=== PATIENT | female | born 1970 | race Caucasian/White ===

== ENCOUNTER 2025-03-05 15:29 | Outpatient (AMB) | payer OTHER, SELFPAY ==
--- NOTE | 2025-03-05 15:31 | A.OFFVIS_ITS ---
Intake Visit Reasons: tremors HPI Comments Details: The patient is a 54 year old individual presenting for evaluation of hand tremors and headaches. The patient reports experiencing tremors for approximately 10 years, which have occurred off and on but seem to be worsening more recently. The patient feels the tremor may have worsened after starting Symbicort two years ago and notes it can be present in the mornings or at other times during the day. The tremor is not disabling and has not caused social problems, although the patient sometimes has to wait for the shaking to subside before picking things up. The patient was also referred to discuss headaches, which have become more frequent. Last month, one episode lasted for five days, and the patient has a family history of migraines, affecting the mother, father, sister, and nephew. For relief, the patient uses ibuprofen and Tylenol. Past medical history is significant for depression and anxiety since the age of 19, for which the patient has been treated on and off over the years and is currently taking bupropion 150 mg and escitalopram 20 mg. The patient has a history of COPD (chronic bronchitis) and uses Ellipta, Symbicort, and Ventolin as needed. The patient also takes Lo Loestrin Fe for control and valacyc lovir as needed. The patient denies a history of heavy alcohol use or chemotherapy exposure. Review of Systems Narrative Constitutional:? Complain of fatigue and malaise HEENT:? Complain of sore throat Cardiovascular:?No chest pain, palpitations, orthopnea, PND, or leg swelling. Respiratory:? Complain of cough and shortness of breath Gastrointestinal:?No nausea, vomiting, abdominal pain, diarrhea, or constipation. Genitourinary:? Complain of urinary incontinence Musculoskeletal:? Complain of back pain and neck pain Neurological:? Complain of tremor, memory problems, headaches, dizziness, Psychiatric:?No anxiety, depression, mood swings, sleep disturbance, or hallucinations. Endocrine:? Complain of cold intolerance Hematologic/Lymphatic:?No easy bruising, bleeding, or lymphadenopathy. Integumentary (Skin):?No rash, lesions, itching, or color changes. Allergic/Immunologic:?No seasonal allergies, hives, or recurrent infections. Physical Exam Neuro Other: Mental Status: Alert and oriented to person, place, and time. Normal attention. Normal spontaneous speech, fluency, and comprehension. No obvious issues with mood and memory. Affect is appropriate. Cranial Nerves: CN II: Visual sheppard full to confrontation, visual acuity intact. CN III, IV, : Pupils equal, round, reactive to light and accommodation. Extraocular movements are normal. CN V: Facial sensation is normal. CN VII: Facial movements symmetrical. CN VIII: Hearing intact to bedside conversation is normal. CN IX, X: Palate elevates symmetrically. CN XI: Shoulder shrug and head turn symmetrical. CN XII: Tongue midline without atrophy or fasciculations. Motor: Bulk and tone normal in all extremities. No significant muscle weakness in arms and legs. No drift. Reflexes: Deep tendon reflexes 2+ and symmetric. Plantar response down-going bilaterally. Coordination: Gtwaho-qt-ttzf and rlql-zq-dsoh testing normal. No dysmetria. Gait and Station: No obvious gait abnormality. No ataxia or instability. Sensory: Intact to light touch, pinprick, and vibration. Romberg is negative. Extrapyramidal: Full facial expressions and blinking. No rigidity. Movements are appropriate with no tremor or abnormality. Speech: Normal; no dysarthria or tremor. Assessment & Plan Assessment & Plan (1) Migraine without aura: Code(s): G43.009 - Migraine without aura, not intractable, without status migrainosus Category: Medical Qualifiers: Status migrainosus presence: without status migrainosus Intractability: not intractable Qualified Code(s): G43.009 - Migraine without aura, not intractable, without status migrainosus (2) Physiological tremor: Code(s): R25.1 - Tremor, unspecified Category: Medical Plan Impression: a: Physiological tremor probably exaggerated by antidepressant b: Migraine w/o aura Rec: a: Education about tremor, which did not require any medicine b: Sumatriptan 50mg one a day as needed I discussed with the patient that the hand tremor is an exaggerated physiological tremor and not a sign of a serious neurological disease. I explained that this type of tremor can be made worse by certain medications, such as the antidepressants and COPD inhalers the patient is taking. I reassured the patient that no medication is needed for the tremor as it is not disabling. I explained that the patient's headaches are likely migraines, given the symptoms and family history. I have prescribed sumatriptan for as-needed use and advised taking it with caffeine to enhance efficacy and reduce side effects. I recommended a follow-up appointment with my nurse practitioner, Yamilet, for ongoing management of the headaches, clarifying that no follow-up is needed for the tremor. Medications: New sumatriptan succinate 50 mg orally qd prn for headache PRN; do not exceed 4 doses per 24 hrs 10 tabs 5RF migraine headache Coding Level of Care Code New Pt Level 4 (11646) Diagnoses Migraine without aura and without status migrainosus, not intractable G43.009 Status migrainosus presence: without status migrainosus Intractability: not intractable Physiological tremor R25.1
--- OUTSIDE RECORDS SUMMARY | 2025-03-05 19:03 | XMS_ITS | Encounter Summary ---
Author Organization [facility] Address [address] [place] [address] Care Team Providers Care Director Of Cardiology Name Role Phone Victor Manuel Stover MD Primary Care Provider [phone] Encounter Details Date Type Department Care Team ([facility] st Contact Info) Description 01/27/2025 Results Follow-Up Pulmonology - [place] [address] [facility] [place] [address] Seble Garcia MD [address] [place] [phone] Social History Tobacco Use Types Packs/Day Years Used Date Smoking Tobacco: Former Cigarettes 0.5 Q uit: 04/11/1994 Smokeless Tobacco: Never Alcohol Use Standard Drinks/Week Comments Yes 0 (1 standard drink = 0.6 oz pur e alcohol) Housing Instability Answer Date Recorde d Are you worried that in the next 2 months you may not have stable housing? No 12/14/2024 Food Access & Nutrition Answer Date Rec orded Do you have access to a vari ety of food including fruits and vegetables? Yes 12/14/2024 Access to Healthcare Answer Date Record ed Within the last 3 months, bhargavi moseley many times did you visit the emergency department for your medical care? 0 12/14/2024 Health Literacy Answer Date Recorded How often do you need to hav e someone help you when you read instructions, pamphlets, or other written material from your doctor or pharmacy? Never 12/14/2024 Caregiver: How often do you need to have someone help you when you read instructions, pamphlets, or other written material from your doctor or pharmacy? Not on file 12/14/2024 Financial Risk Answer Date Recorded How hard is it for you to pa y for the very basics like food, housing, medical care, and air conditioning / heating? Not very hard 12/14/2024 Transportation Answer Date Recorded Has the lack of transportati on kept you from meetings, work, or from getting things needed for daily living? No Has the lack of transportati on kept you from medical appointments or from getting medications? No 12/14/2024 Social Isolation Answer Date Recorded How often do you feel lonely or isolated from th ose around you? Never 12/14/2024 Food Risk Answer Date Recorded Within the past 12 months we worried whether our food would run out before we got money to buy more. Never true 12/14/2024 Within the past 12 months th e food we bought just didn't last and we didn't have money to get more. Never true 12/14/2024 Dependent Care Answer Date Recorded Do you need help finding or paying for care for your loved ones. For example, child care assistant or elderly care for an older adult? No 12/14/2024 Education Answer Date Recorded Do you think completing more education or training, like finishing a GED, going to college, or learning a trade, would be helpful for you? No 12/14/2024 Employment and Income Answer Date Recor ded During the last four weeks, have you been actively looking for work? No 12/14/2024 Living Situation Answer Date Recorded What is your living situation? Unrecognized valu e 12/14/2024 Comments No Sex and Gender Information Value Date Recorded Sex Assigned at Not on file Legal Sex Female 8:33 PM EST Gender Identity Not on file Sexual Orientation Not on file documented as of this encounter Progress Notes * Seble Garcia MD - 01/27/2025 9:58 PM EDT Inform patient chest x-ray showed no new findings. documented in this encounter Plan of Treatment Upcoming Encounters Date Type Department Care Team (Late st Contact Info) Description 07/31/2025 10:00 AM EDT Office Visit Pulmonology - [place] [address] [facility] [place] [address] Seble Garcia MD [address] [place] [phone] documented as of this encounter Visit Diagnoses Not on filedocumented in this encounter Additional Health Concerns Assessment Noted Time PHQ-9 Depression Total Score: 1 12/15/19 25 7:36 AM EDT documented as of this encounter Care Teams Director Of Cardiology Relationship Specialty Start Date End Date Victor Manuel Stover MD PCP - General Internal Medicine 05/28/19 documented as of this encounter
--- OUTSIDE RECORDS SUMMARY | 2025-03-05 19:03 | XMS_ITS ---
Author Name [facility] Organization Unknown History of Medication Use Medication Directions Dispensed Refills Start Date End Date Stat budesonide-formoteroL (SYMBICORT) 160-4.5 mcg/actuation inhaler Inhale 2 puffs by mouth 2 (two) times a day. Rinse mouth with water after use to reduce aftertaste and incidence of candidiasis. Do not swallow. 08/16/2024 active valACYclovir (VALTREX) 1 gram tablet TAKE 2 TABLETS BY MOUTH TWICE A DAY DIRECTED FOR 1 DAY FOR OUTBREAK 08/14/2024 active albuterol HFA (PROAIR HFA ; PROVENTIL HFA ; VENTOLIN HFA) 90 mcg/actuation inhaler Inhale 2 puffs by mouth every 6 (six) hours if needed for wheezing or shortness of breath. 07/18/2024 active fluticasone furoate (Arnuity Ellipta) 100 mcg/actuation blister with device inhaler Inhale 1 puff by mouth 1 (one) time each day. 07/18/2024 active norethindrone-e.estrad ioL-iron (Lo Loestrin Fe) 1 mg-10 mcg (24)/10 mcg (2) per tablet Take by mouth. 09/02/2020 active escitalopram (LEXAPRO) 20 mg tablet Take 1 tablet (20 mg total) by mouth 1 (one) time each day. 06/16/2020 active buPROPion XL (WELLBUTRIN XL) 150 mg 24 hr tablet Take 1 tablet (150 mg total) by mouth 1 (one) time each day. active calcium carbonate-vitamin D3 500 mg-3.125 mcg (125 unit) tablet per tabelt 2 tablets twice a day by oral route. active cholecalciferol, vitamin D3, 25 mcg (1,000 unit) tablet,chewable 2 units twice a day by oral route. active Lactobacillus acidophilus 10 billion cell capsule 1 million cells twice a day by oral route. active multivitamin tablet 2 tablets twice a day by oral route. 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 ProblemAct [facility] Sprain of sacroiliac ligament active 2007-06-07 ProblemAct [facility] Depression active 2012-01-13 ProblemAct [facility] Tubular adenoma active 2023-01-[address] [facility] Immunizations Vaccine Date Source Lot Number Status Influenza trivalent, 0.5mL, preservative free (Fluarix; FluLaval; Fluzone) ages 6mo and older (Afluria) 3 years and older [facility]20[id number] Influenza Quadravalent, MDCK , 0.5ml, preservative free (Flucelvax) 6mo and older 01/31/2023 [facility] [id number] completed Influenza trivalent, 0.5mL, preservative free (Fluarix; FluLaval; Fluzone) ages 6mo and older (Afluria) 3 years and older 01/21/2022 [facility] Moderna SARS-CoV-2 COVID-19, mRNA, LNP-S, preservative free 08/17/2021 [facility] [id number] completed Moderna SARS-CoV-2 COVID-19, mRNA, LNP-S, preservative free 05/19/2020 [facility] [id number] completed Moderna SARS-CoV-2 COVID-19, mRNA, LNP-S, preservative free 04/21/2020 [facility] [id number] completed Influenza trivalent, 0.5mL, preservative free (Fluarix; FluLaval; Fluzone) ages 6mo and older (Afluria) 3 years and older 01/29/2020 [id number] completed Td Tetanus diptheria (Tdvax) 7yo and older 06/07/2019 [id number] completed Influenza trivalent, 0.5mL, preservative free (Fluarix; FluLaval; Fluzone) ages 6mo and older (Afluria) 3 years and older 02/16/2018 [facility] [id number] completed Influenza trivalent, 0.5mL, preservative free (Fluarix; FluLaval; Fluzone) ages 6mo and older (Afluria) 3 years and older 01/26/2017 [facility] completed Hepatitis B (Sbmprkd-S-Hrgjy , Recombivax HB-Adult) 19yo and older 09/14/2010 [id number] complet ed Tdap Tetanus diptheria acell ular pertussis (Boostrix; Adacel) 7yo and older 07/23/2008 [id number] completed Care Team Organization Name Specialty Phone Email Start Date End Da te [facility] Victor Manuel Stover Primary Care 08/16/2022 11/28/2023 [facility] Kary Maguire MD Primary Care 02/16/2022 11/28/2023
--- OUTSIDE RECORDS SUMMARY | 2025-03-05 19:03 | XMS_ITS | Clinical Summary ---
Author Organization [address] Building Address [address] [place] [phone] Phone Care Team Providers Care Planning Lead Name Role Phone Victor Manuel Stover MD Primary Care Provider [phone] Allergies Active Allergy Reactions Criticality Noted Date Comments Amoxicillin 09/12/2018 Medications norethindrone-e. estradioL-iron (Lo Loestrin Fe) 1 mg-10 mcg (24)/10 mcg (2) per tablet Take by mouth. 1 Active fluticasone furoate (Arnuity Ellipta) 100 mcg/actuation blister with device inhaler Inhale 1 puff by mouth 1 (one) time each day. 1 each 5 07/19/19 26 Active albuterol HFA (PROAIR HFA ; PROVENTIL HFA ; VENTOLIN HFA) 90 mcg/actuation inhalerIndicatio ns:Chronic bronchitis, unspecified chronic bronchitis type (CMS/HCC V24, CMS/HCC V28) Inhale 2 puffs by mouth every 6 (six) hours if needed for wheezing or shortness of breath. 1 each 5 07/19/19 26 Active valACYclovir (VALTREX) 1 gram tablet TAKE 2 TABLETS BY MOUTH TWICE A DAY DIRECTED FOR 1 DAY FOR OUTBREAK 12 tablet 1 5 Active budesonide-formo teroL (SYMBICORT) 160-4.5 mcg/actuation inhaler Inhale 2 puffs by mouth 2 (two) times a day. Rinse mouth with water after use to reduce aftertaste and incidence of candidiasis. Do not swallow. 3 each 3 5 08/17/19 Active calcium carbonate-vitami n D3 500 mg-3.125 mcg (125 unit) tablet per tabelt 2 tablets twice a day by oral route. Active digestive enzymes capsule Acti ve cholecalciferol, vitamin D3, 25 mcg (1,000 unit) tablet,chewable 2 units twice a day by oral route. Active multivitamin tablet 2 tablets twice a day by oral route. Active buPROPion XL (WELLBUTRIN XL) 150 mg 24 hr tablet Take 1 tablet (150 mg total) by mouth 1 (one) time each day. Active escitalopram (LEXAPRO) 20 mg tablet Take 1 tablet (20 mg total) by mouth 1 (one) time each day. 1 Active Lactobacillus acidophilus 10 billion cell capsule 1 million cells twice a day by oral route. 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 Tubular adenoma 01/31/2023 Overview (03/06/2024): 12/2022, repeat in 5 years Weakness of left hip 11/07/2017 Vertigo 03/10/2015 Depression 01/13/2012 Overview (03/06/2024): Doing well on Citalopram 20 mg qd Lumbosacral root lesions 06/29/2007 Sprain of sacroiliac ligament 06/07/2007 Encounters Date Type Department Care Team Description 02/01/2025 Telephone Infectious Disease - [place] [facility] [address] [place] [phone] Christina Interiano RN 01/31/2025 Results Follow-Up Internal Medicine - [facility] [address] [place] [phone] Jayme Contreras NP 01/30/2025 10:45 AM EDT Office Visit Pulmonology - [place] [facility] 200 [place] [address] Seble Garcia MD Chronic bronchitis, unspecified chronic bronchitis type (CMS/HCC V24, CMS/HCC V28) (Primary Dx); Lung nodules; Ex-smoker 01/30/2025 9:00 AM EDT Ancillary Procedure Pulmonology [address] [phone] Chronic bronchitis, unspecified chronic bronchitis type (CMS/HCC V24, CMS/HCC V28) 01/27/2025 Results Follow-Up Pulmonology - [address] [phone] Seble Garcia MD 01/25/2025 3:51 PM EDT - 01/25/2025 11:59 PM EDT Hospital Encounter Xray - [address] [phone] Chronic bronchitis, unspecified chronic bronchitis type ([facility]/HCC V24, [facility] V28) Discharge Disposition: Home or Self Care 01/17/2025 5:16 PM EDT - 01/17/2025 11:59 PM EDT Hospital Encounter Radiology Department - [address] [phone] Encounter for screening mammogram for breast cancer Discharge Disposition: Home or Self Care 01/01/2025 4:29 PM EDT - 01/01/2025 11:59 PM EDT Hospital Encounter Radiology Department - [address] [phone] Tremor Discharge Disposition: Home or Self Care 12/14/2024 8:45 AM EDT Office Visit Internal Medicine - [address] [phone] Jayme Contreras NP Tiredness (Primary Dx); Tremor from Last 3 Months Immunizations Immunization Administration Dates Next Due Hepatitis B (Txkqpdw-E-Aczps , Recombivax HB-Adult) 19yo and older 09/14/2010 Influenza Quadravalent, MDCK , 0.5ml, preservative free (Flucelvax) 6mo and older 01/31/2023 Influenza trivalent, 0.5mL, preservative free (Fluarix; FluLaval; Fluzone) ages 6mo and older (Afluria) 3 years and older 01/24/2024,01/21/2022,01/29/2020,2017,01/26/2017 Moderna SARS-CoV-2 COVID-19, mRNA, LNP-S, preservative free 08/17/2021,05/19/2020,04/21/2020 Td Tetanus diptheria (Tdvax) 7yo and older 06/07/2019 Tdap Tetanus diptheria acell ular pertussis (Boostrix; Adacel) 7yo and older 07/23/2008 Surgical History Surgery Date Site/Laterality Comments OTHER SURGICAL HISTORY PROCEDURE: HISTORY OTHER; COMMENT: cyst and part of the fallopian OTHER SURGICAL HISTORY PROCEDURE: HISTORY OTHER; COMMENT: repair nasal septum TONSILLECTOMY PROCEDURE: HISTORICAL TONSILLECTOMY Medical History Medical History Date Comments Anxiety state, unspecified DX:An xiety state, unspecified Peptic ulcer, unspecified si te, unspecified as acute or chronic, without mention of hemorrhage or perforation, with obstruction DX:Peptic ulcer, unspeci fied site, unspecified as acute or chronic, without mention of hemorrhage or perforation, with obstruction Tubular adenoma 01/31/2023 DX:Tubular adeno ma; COMMENT: 12/2022, repeat in 5 years Family History Medical History Relation Name Comments Colon polyps Father Other: Cardiac Amyloidosis Father Other: type 2 diabetes Father Depression Mother psoriasis Other: tia Mother Other: anuersym Paternal Grandfather aort ic,cig Other: anxiety Son Breast cancer Neg Hx Relation Name Status Comments Brother Alive Daughter Alive Father Alive Maternal Grandfather Maternal Grandmother Mother Alive Paternal Grandfather Paternal Grandmother Sister Alive Son Alive Social History Tobacco Use Types Packs/Day Years Used Date Smoking Tobacco: Former Cigarettes 0.5 Q uit: 04/11/1994 Smokeless Tobacco: Never Tobacco Cessation:Counseling Given: Not Answered Alcohol Use Standard Drinks/Week Comments Yes 0 [...] Record ed Within the last 3 months, ho w many times did you visit the emergency [...] care for your loved ones. For example, residential child care counselor or elderly care for an older adult? [...] on file Sexual Orientation Not on file Obstetrics History Para Term AB IAB SAB Ectopic Multiple Livin g Live Births 2 2 2 2 Date Outcome GA Total Labor Labor/2nd/3rd Weight Sex Type Anes PTL Blanche A1 A5 Name Clin Term Term Last Filed Vital Signs Vital Sign Reading Time Taken Comments Blood Pressure 103/52 01/30/2025 9:35 AM EDT Pulse 69 01/30/2025 9:35 AM EDT Temperature 36.7 C (98.1 F) 01/30/2025 9:35 AM EDT Respiratory Rate - - Oxygen Saturation 100% 01/30/2025 9:35 AM EDT Inhaled Oxygen Concentration - - Weight 61.7 kg (136 lb) 01/30/2025 9:35 AM EDT Height 165.1 cm (5' 5 ) 07/18/2024 8:12 AM EDT Body Mass Index 22.63 07/18/2024 8:12 AM EDT Plan of Treatment Upcoming Encounters Date Type Department Care Team (Late st Contact Info) Description 07/31/2025 10:00 AM EDT Office Visit Pulmonology - [address] [place] [phone] Seble Garcia MD [address] [place] [phone] Health Maintenance Due Date Last Done Comments Hepatitis B Vaccines (2 of 3 - 19+ 3-dose series) 10/12/2010 09/14/2010 Cervical Cancer Screening: Pap Smear 06/14/2015 06/13/2012 Zoster Vaccines (1 of 2) 08/27/2019 HIV Screening 03/20/2022 COVID-19 Vaccine ( season) 2024 08/17/2021, 02/10/2021, 05/19/2020, Additional history exists Social Influencers of Health Screening 12/14/2025 12/14/2024 Breast Cancer Screening 01/17/2027 01/18/20 25, 10/18/2023, 10/18/2023, Additional history exists Colorectal Cancer Screening: Colonoscopy 12/15/2027 12/14/2022 Cholesterol Screening (Lipid Panel) 07/14/2028 07/15/2023 DTaP,Tdap,and Td Vaccines (3 - Td or Tdap) 06/07/2029 06/07/2019, 07/23/2008 Hepatitis C Screening Completed 01/28/2009 Pneumococcal Vaccine: 50+ Years Completed 02/07/2024 Depression Screening Completed 12/14/2024, 02/10/20 24 RSV Immunization Adult Patients Completed 12/20/2024 Influenza Vaccine Completed 01/21/2025, , 01/31/2023, Additional history exists HIB Vaccines Aged Out No longer eligi ble based on patient's age to complete this topic HPV Vaccines Aged Out No longer eligi ble based on patient's age to complete this topic Hepatitis A Vaccines Aged Out No long er eligible based on patient's age to complete this topic IPV Vaccines Aged Out No longer eligi ble based on patient's age to complete this topic MMR Vaccines Aged Out No longer eligi ble based on patient's age to complete this topic Meningococcal ACWY Vaccine Aged Out N o longer eligible based on patient's age to complete this topic Meningococcal B Vaccine Aged Out No l onger eligible based on patient's age to complete this topic RSV Immunization Patients Under 20 months Aged Out No longer eligible based on patient's age to complete this topic Varicella Vaccines Aged Out No longer eligible based on patient's age to complete this topic Procedures Procedure Name Priority Date/Time Associated Diagnosis Comments KEVYN CACERES VIRUS IGG, IGM, NUCLEAR AND EARLY ANTIBODIES Routine 01/30/2025 10:02 AM EDT Tiredness PULMONARY FUNCTION TESTING Routine 01/30/2025 9:13 AM EDT Chronic bronchitis, unspecified chronic bronchitis type (CMS/HCC V24, CMS/HCC V28) XR CHEST 2 VIEWS Routine 01/25/2025 3:57 PM EDT Chronic bronchitis, unspecified chronic bronchitis type (CMS/HCC V24, CMS/HCC V28) MG MAMMO DIGITAL SCREENING W ISHAN BILAT Routine 01/17/2025 5:33 PM EDT Encounter for screening mammogram for breast cancer MR BRAIN WO CONTRAST Routine 01/01/2025 5:18 PM EDT Tremor CBC WITH AUTO DIFFERENTIAL Routine 12/14/2024 4:28 PM EDT Tiredness BORRELIA BURGDORFERI ANTIBODY Routine 12/14/2024 4:28 PM EDT Tiredness CBC AND DIFFERENTIAL Routine 12/14/2024 4:28 PM EDT Tiredness COMPREHENSIVE METABOLIC PANEL Routine 12/14/2024 4:28 PM EDT Tremor THYROID STIMULATING HORMONE WITH REFLEX TO FREE T4 AND FREE T3 Routine 12/14/2024 4:28 PM EDT Tremor HM DEPRESSION SCREENING Routine 02/10/2024 LIPID PANEL Routine 07/15/2023 HM COLONOSCOPY Routine 12/14/2022 HM PAP SMEAR Routine 06/13/2012 HEPATITIS C SCREENING Routine 01/28/2009 from Last 3 Months or Most Recently Relevant to Health Maintenance Results * (ABNORMAL) Kevyn caceres virus IgG, IgM, nuclear and early antibodies (01/30/2025 10:02 AM EDT) EBV VCA IgG Positive(A) Negative LAB CHEMISTRY METHOD 01/31/2025 7:34 AM EDT [facility] EBV VCA IgM Negative Negative LAB CHEMISTRY METHOD 01/31/2025 7:34 AM EDT [facility] EBV Nuclear Ag Ab Positive(A) Negative LAB CHEMISTRY METHOD 01/31/2025 7:34 AM EDT [facility] EBV Early Ag Ab Positive(A) Negative LAB CHEMISTRY METHOD 01/31/2025 7:34 AM EDT [facility] Blood Venous blood specimen / Unknown Venipuncture / Unknown 01/30/2025 10:02 AM EDT 01/30/2025 10:02 AM EDT Narrative [facility] - 01/31/2025 7:34 AM EDT Suggestive of a past Kevyn-Caceres Virus infection. Jayme Contreras ADVERTISING PRODUCTION MANAGER LAB BLOOD ORDERABLES Final Res ult [facility] [address] [place] [address], [place] [phone] * Pulmonary function testing: Carbon Monoxide Diffusing Capacity, Nitrogen Wash Out, Spirometry with Bronchodilator (01/30/2025 9:13 AM EDT) Impressions Iván Horvath MD - 01/30/2025 9:13 AM EDT Pulmonary function test interpretation. Spirometry done today reveals FEV1 of 2.98 which is 108% of the predicted value, FVC is 3.69 which is 104% of the predicted value, FEV1 to FVC ratio is 103% of the predicted value, bronchodilator response was not assessed. Flow-volume is consistent with normal pattern. Static lung volumes are either elevated or within normal limits. Diffusion lung capacity is moderately reduced after correction for alveolar volume. This study is consistent with normal spirometry and lung volumes, there is moderate reduction in diffusion lung capacity for which clinical correlation is advised. Seble Garcia MD PFT ORDERABLES Final Result * XR Chest 2 Views (01/25/2025 3:57 PM EDT) Anatomical Region Laterality Modality Body Radiographic Ayse ging 01/25/2025 4:24 PM EDT Impressions 01/25/2025 4:25 PM EDT No acute pulmonary pathology. -------- FINAL REPORT -------- Dictated By: Elma Clifford Dictated Date: 01/25/2025 16:24 ET Assigned Physician: Elma Clifford Reviewed and Electronically Signed By: Elma Clifford Signed Date: 01/25/2025 16:25 ET Workstation ID: [id number] Transcribed By: Self Edit Transcribed Date: 01/25/2025 16:24 ET Narrative 01/25/2025 4:25 PM EDT CHEST, TWO VIEWS HISTORY: Dyspnea. TECHNIQUE: Frontal and lateral views of the chest. PRIOR: Chest x-ray 10/09/2022. FINDINGS: The lungs are clear. No pleural effusion is seen. No pneumothorax is seen. The cardiac diameter is within normal limits. No acute or aggressive appearing bony abnormalities are seen. Is mild curvature of the thoracic spine, convexity to the left. Procedure Note Elma Clifford MD - 01/25/2025 CHEST, TWO VIEWS HISTORY: Dyspnea. TECHNIQUE: Frontal and lateral views of the chest. PRIOR: Chest x-ray 10/09/2022. FINDINGS: The lungs are clear. No pleural effusion is seen. No pneumothorax is seen. The cardiac diameter is within normal limits. No acute or aggressive appearing bony abnormalities are seen. Is mildcurvature of the thoracic spine, convexity to the left. IMPRESSION: No acute pulmonary pathology. -------- FINAL REPORT -------- Dictated By: Elma Clifford Dictated Date: 01/25/2025 16:24 ET Assigned Physician: Elma Clifford Reviewed and Electronically Signed By: Elma Clifford Signed Date: 01/25/2025 16:25 ET Workstation ID: [id number] Transcribed By: Self Edit Transcribed Date: 01/25/2025 16:24 ET Seble Garcia MD IMG XR PROCEDURES Final Result * MG Mammo Digital Screening w Ishan bilat (01/17/2025 5:33 PM EDT) Anatomical Region Laterality Modality Breast Bilateral Mammography 01/21/2025 12:4 6 PM EDT Impressions 01/21/2025 12:47 PM EDT No mammographic evidence of malignancy. BREAST DENSITY: B - There are scattered areas of fibroglandular density. BI-RADS CATEGORY: 1 - NEGATIVE RECOMMENDATION: Screening bilateral mammogram is recommended in 1 year. MAMMO LOCATION: [facility], [address] [place] [address], [phone], . -------- FINAL REPORT -------- Dictated By: Ivory Mora Dictated Date: 01/21/2025 12:46 ET Assigned Physician: Ivory Mora Reviewed and Electronically Signed By: Ivory Mora Signed Date: 01/21/2025 12:47 ET Workstation ID: [id number] Transcribed By: Self Edit Transcribed Date: 01/21/2025 12:46 ET Narrative 01/21/2025 12:47 PM EDT EXAM: Screening Mammogram CLINICAL: 54 years old, Female, routine annual exam. COMPARISON: 10/18/2023 and as far back as 04/30/2020 TECHNIQUE: Bilateral MLO and CC views were obtained digitally with 3-D mammogram (digital breast tomosynthesis). Computer-aided detection was utilized in evaluation of this exam (CAD). FINDINGS: No new suspicious mass, architectural distortion, or suspicious calcifications. Procedure Note Ivory Mora MD - 01/21/2025 EXAM: Screening Mammogram CLINICAL: 54 years old, Female, routine annual exam. COMPARISON: 10/18/2023 and as far back as 04/30/2020 TECHNIQUE: Bilateral MLO and CC views were obtained digitally with 3-Dmammogram (digital breast tomosynthesis). Computer-aided detection wasutilized in evaluation of this exam (CAD). FINDINGS: No new suspicious mass, architectural distortion, or suspiciouscalcifications. IMPRESSION: No mammographic evidence of malignancy. BREAST DENSITY: B - There are scattered areas of fibroglandular density. BI-RADS CATEGORY: 1 - NEGATIVE RECOMMENDATION: Screening bilateral mammogram is recommended in 1 year. MAMMO LOCATION: [facility], [address] [place] [address], [phone], . -------- FINAL REPORT -------- Dictated By: Ivory Mora Dictated Date: 01/21/2025 12:46 ET Assigned Physician: Ivory Mora Reviewed and Electronically Signed By: Ivory Mora Signed Date: 01/21/2025 12:47 ET Workstation ID: [id number] Transcribed By: Self Edit Transcribed Date: 01/21/2025 12:46 ET Victor Manuel Stover MD IMG BI PROCEDURES Final R esult * MR Brain wo Contrast (01/01/2025 5:18 PM EDT) Anatomical Region Laterality Modality Head and Neck Magnetic Resonan ce 01/01/2025 7:05 PM EDT Impressions 01/03/2025 9:00 AM EDT No evidence of a recent infarction, intracranial hemorrhage, mass, or mass effect. -------- FINAL REPORT -------- Dictated By: Ivory Mora Dictated Date: 01/01/2025 19:05 ET Assigned Physician: Ivory Mora Reviewed and Electronically Signed By: Ivory Mora Signed Date: 01/03/2025 09:00 ET Workstation ID: [id number] Transcribed By: Self Edit Transcribed Date: 01/01/2025 19:18 ET Narrative 01/03/2025 9:00 AM EDT EXAM: Brain MRI HISTORY: Hand tremor. Dizziness. COMPARISON: None CORRELATION: None TECHNIQUE: Exam performed on a 1.5 Sylvie high-field MRI scanner. Multiplanar imaging performed without contrast. FINDINGS: No restricted diffusion to indicate a recent infarct. No evidence of intracranial hemorrhage. No significant signal abnormality in the brain parenchyma. No evidence of a mass, mass effect, or midline shift. No hydrocephalus. Basal cisterns are patent. No cerebellar ectopia. Pituitary gland is not enlarged. Normal vascular flow-voids appear present in the major intracranial arteries at the skull base. Minimal mucosal thickening in the ethmoid sinuses. No significant fluid signal within mastoid air cells. Procedure Note Ivory Mora MD - 01/03/2025 EXAM: Brain MRI HISTORY: Hand tremor. Dizziness. COMPARISON: None CORRELATION: None TECHNIQUE: Exam performed on a 1.5 Sylvie high-field MRI scanner.Multiplanar imaging performed without contrast. FINDINGS: No restricted diffusion to indicate a recent infarct. No evidence ofintracranial hemorrhage. No significant signal abnormality in the brainparenchyma. No evidence of a mass, mass effect, or midline shift. No hydrocephalus.Basal cisterns are patent. No cerebellar ectopia. Pituitary gland is notenlarged. Normal vascular flow-voids appear present in the majorintracranial arteries at the skull base. Minimal mucosal thickening in the ethmoid sinuses. No significant fluidsignal within mastoid air cells. IMPRESSION: No evidence of a recent infarction, intracranial hemorrhage, mass, or masseffect. -------- FINAL REPORT -------- Dictated By: Ivory Mora Dictated Date: 01/01/2025 19:05 ET Assigned Physician: Ivory Mora Reviewed and Electronically Signed By: Ivory Mora Signed Date: 01/03/2025 09:00 ET Workstation ID: [id number] Transcribed By: Self Edit Transcribed Date: 01/01/2025 19:18 ET us Jayme Contreras NP IMG MRI PROCEDURES Final Resul t * Thyroid stimulating hormone with reflex to free t4 and free t3 (12/14/2024 4:28 PM EDT) TSH 1.45 0.40 - 4.00 mcIU/mL LAB CHEMISTRY METHOD 12/14/2024 8:53 PM EDT [facility] Blood Venous blood specimen / Unknown Venipuncture / Unknown 12/14/2024 4:28 PM EDT 12/14/2024 4:28 PM EDT us Jayme Contreras NP LAB BLOOD ORDERABLES Final Res ult [facility] [address] [place] [address], * (ABNORMAL) CBC auto differential (12/14/2024 4:28 PM EDT) WBC 5.6 4.8 - 10.8 K/[facility] LAB HEMETOLOGY METHOD 12/14/2024 7:47 PM EDT [facility] RBC 3.80 3.80 - 4.80 M/[facility] LAB HEMETOLOGY METHOD 12/14/2024 7:47 PM EDT [facility] Hemoglobin 12.6 11.5 - 16.0 g/dL LAB HEMETOLOGY METHOD 12/14/2024 7:47 PM EDT [facility] Hematocrit 37.1 35.0 - 47.0 % LAB [facility]OLOGY [facility] MCV 97.1 79.0 - 98.0 FL LAB HEMETOLOGY METHOD [facility]/14[facility]2024 7[facility] MCH 33.0(H) 27.0 - 32.0 pcg LAB HEMETOLOGY METHOD 12/14/2024 7:47 PM [facility] MCHC 34.0 32.0 - 37.0 g/dL LAB HEMETOLOGY METHOD 12/14/2024 7:47 PM [facility] RDW 13.2 11.0 - 15.0 % LAB HEMETOLOGY METHOD 12/14[facility]2024 7[facility] Platelets 199 130 - 400 K/mcL LAB HEMETOLOGY METHOD 12/14/2024 7:47 PM [facility] MPV 9.6 7.0 - 11.0 FL LAB HEMETOLOGY METHOD 12/14/2024 7:47 PM [facility] NRBC 0.0 <1.0 % LAB HEMETOLOGY METHOD 12/14/2024 7:47 PM [facility] NRBC Absolute 0.00 <0.10 K/mcL LAB HEMETOLOGY METHOD 12/14/2024 7:47 PM [facility] Neutrophils Relative 49.0 % LAB HEMETOLOGY METHOD [facility]/14[facility]24 7[facility] Lymphocytes Relative 38.8 % LAB HEMETOLOGY METHOD 12/14/2024 7:47 PM [facility] Monocytes Relative 9.4 % LAB HEMETOLOGY METHOD 12/14/2024 7:47 PM EDT [facility] Eosinophils Relative 1.2 % LAB HEMETOLOGY METHOD 12/14/2024 7:47 PM EDT [facility] Basophils Relative 1.4 % LAB HEMETOLOGY METHOD [facility]/14[facility]24 7[facility] Immature Granulocytes Relative 0.2 % LAB HEMETOLOGY METHOD 12/14/2024 7:47 PM EDT [facility] Neutrophils Absolute 2.75 1.50 - 7.00 K/mcL LAB HEMETOLOGY METHOD 12/14/2024 7:47 PM EDT [facility] Lymphocytes Absolute 2.18 1.00 - 5.00 K/mcL LAB HEMETOLOGY METHOD 12/14/2024 7:47 PM EDT [facility] Monocytes Absolute 0.53 0.20 - 1.00 K/mcL LAB HEMETOLOGY METHOD 12/14/2024 7:47 PM EDT [facility] Eosinophils Absolute 0.07 0.00 - 0.50 K/mcL LAB HEMETOLOGY METHOD 12/14/2024 7:47 PM EDT [facility] Basophils Absolute 0.08 0.00 - 0.20 K/mcL LAB HEMETOLOGY METHOD 12/14/2024 7:47 PM T [facility] Immature Granulocytes Absolute 0.01 0.00 - 0.03 K/mcL LAB HEMETOLOGY METHOD 12/14/2024 7:47 PM EDT [facility] Blood Venous blood specimen / Unknown Venipuncture / Unknown 12/14/2024 4:28 PM EDT 12/14/2024 4:28 PM EDT us Jayme Contreras NP LAB BLOOD ORDERABLES Final Res ult [facility] [address] [place] [address], * Borrelia burgdorferi antibody (12/14/2024 4:28 PM EDT) Pathologist [facility] Lyme Ab Negative Negative LAB CHEMISTRY METHOD 12/17/2024 3:34 PM EDT [facility] Comment: No laboratory evidence of infection with B. burgdorferi (Lyme disease). Negative results may occur in patients recently infected (<=14 days) with B. burgdorferi. If recent infection is suspected, repeat testing on a new sample collected in 7- 14 days is recommended. Blood Venous blood specimen / Unknown Venipuncture / Unknown 12/14/2024 4:28 PM EDT 12/14/2024 4:28 PM EDT Jayme Contreras ADVERTISING PRODUCTION MANAGER LAB BLOOD ORDERABLES Final Res ult [facility] [address] [place] [address], * Comprehensive metabolic panel (12/14/2024 4:28 PM EDT) [facility] Sodium 135 133 - 145 mmol/L LAB CHEMISTRY METHOD 12/14/2024 8:23 PM [facility] Potassium 4.0 3.5 - 5.5 mmol/L LAB CHEMISTRY METHOD 12/14/2024 8:23 PM [facility] Chloride 105 96 - 110 mmol/L LAB CHEMISTRY METHOD 12/14/2024 8:23 PM [facility] CO2 23 21 - 32 mmol/L LAB CHEMISTRY METHOD 12/14/2024 8:23 PM [facility] Anion Gap 7 3 - 11 LAB CHEMISTRY METHOD 12/14/2024 8:23 PM [facility] Glucose 70 70 - 100 mg/dL LAB CHEMISTRY METHOD 12/14/2024 8:23 PM [facility] BUN 8 5 - 25 mg/dL LAB CHEMISTRY METHOD 12/14/2024 8:23 PM [facility] Creatinine 0.83 0.50 - 1.10 mg/dL LAB CHEMISTRY METHOD 12/14/2024 8:23 PM [facility] eGFR 83 >=60 mL/min/1. 73m2 LAB CHEMISTRY METHOD 12/14/2024 8:23 PM [facility] Comment:Calculation based on the Chronic Kidney Disease Epidemiology Collaboration (CKD-EPI) equation refit without adjustment for race. BUN/Creatinine Ratio 9.6 LAB CHEMISTRY METHOD 12/14/2024 8:23 PM [facility] Calcium 8.7 8.5 - 10.5 mg/dL LAB CHEMISTRY METHOD 12/14/2024 8:23 PM [facility] AST (SGOT) 29 10 - 42 unit/L LAB CHEMISTRY METHOD 12/14/2024 8:23 PM [facility] ALT (SGPT) 25 10 - 60 unit/L LAB CHEMISTRY METHOD 12/14/2024 8:23 PM [facility] Alkaline Phosphatase 60 42 - 121 unit/L LAB CHEMISTRY METHOD 12/14/2024 8:23 PM [facility] Total Protein 6.3 6.0 - 8.0 g/dL LAB CHEMISTRY METHOD 12/14/2024 8:23 PM [facility] Albumin 3.7 3.2 - 5.0 g/dL LAB CHEMISTRY METHOD 12/14/2024 8:23 PM [facility] Total Bilirubin 0.4 0.0 - 1.4 mg/dL LAB CHEMISTRY METHOD 12/14/2024 8:23 PM [facility] Blood Venous blood specimen / Unknown Venipuncture / Unknown 12/14/2024 4:28 PM EDT 12/14/2024 4:28 PM EDT us Jayme Contreras NP LAB BLOOD ORDERABLES Final Res ult [facility] [address] [place] [address], * Depression Screening (02/10/2024) Pathologist [facility] Depression Screening Abstracted Historical Provider HEALTH MAINTENANCE Final Result * Lipid panel (07/15/2023) [facility] LDL/HDL Ratio 2 0 - 4 Triglycerides 58 0 - 150 mg/dL Cholesterol 194 0 - 200 mg/dL HDL 91 >=40 mg/dL LDL Cholesterol 92 0 - 100 mg/dL Blood Venous blood specimen / Unknown Historical Provider LAB BLOOD ORDERABLES Kelly l Result * Colonoscopy (12/14/2022) Pathologist [facility] Colonoscopy No Interpretation , Abstracted Anatomical Region Laterality Modality Other Historical Provider HEALTH MAINTENANCE Final Result * Pap Smear (06/13/2012) Pathologist [facility] Pap smear No Interpretation , Abstracted Historical Provider HEALTH MAINTENANCE Final Result * Hepatitis C Screening (01/28/2009) [facility] Hepatitis C Screening Abstracted Historical Provider HEALTH MAINTENANCE Final Result from Last 3 Months or Most Recently Relevant to Health Maintenance Insurance [facility] [employer] Care Teams Planning Lead Relationship Specialty Start Date End Date Victor Manuel Stover MD PCP - General Internal Medicine 05/28/19
--- OUTSIDE RECORDS SUMMARY | 2025-03-05 19:03 | XMS_ITS | Encounter Summary ---
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) Jayme Contreras NP [address] [place] [id number] Phone: tel: fax: Infectious Disease - [address] [place] [address] Phone: tel: fax: Referral ID Status Reason Start Date Expiration Date Visits Requested Visits Authorized [id number] Authorized Specialty Services Required 01/31/2026 1 1 Reason for Visit * Reason Onset Date Comments Results 01/31/2025 Encounter Details Date Type Department Care Team ([facility] Contact Info) Description 01/31/2025 Results Follow-Up Internal Medicine - [address] [phone] Jayme Contreras NP [address] [place] [address] Social History Tobacco Use Types Packs/Day Years [...] care for your loved ones. 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 I have sent the patienta detailed message via [employer] explaining the findings from the blood work. Additionally, I have referred the patient to an infectious diseases specialist for further evaluation and management. ----- Message ----- From: Lab, Background User Sent: 01/31/2025 7:34 AM EDT To: Jayme Contreras NP documented in this encounter Plan of Treatment Upcoming Encounters Date Type Department Care Team (Late st Contact Info) Description 07/31/2025 10:00 AM EDT Office Visit Pulmonology - [address] [place] [address] Seble Garcia MD [address] [place] [phone] Scheduled Referrals Name Type Priority Associated Diagnoses Order Schedule Ambulatory referral to Infectious Disease Outpatient Referral Routine Positive test for Kevyn-Fsiher virus (EBV) 1 Occurrences starting 01/31/2025 until 01/31/2026 documented as of this encounter Visit Diagnoses Diagnosis 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
== END 2025-03-05 15:59 | disposition home or self-care (01) ==
LOC: HO.HSM 15:30
PROVIDERS: PCP Internal Medicine; Visit Provider Psychiatry & Neurology Neurology
DX: G43.009 Migraine without aura, not intractable, without status migrainosus (principal); R25.1 Tremor, unspecified
CPT/HCPCS: 99204

== ENCOUNTER → 2025-03-05 15:29 | Outpatient (BNVA) | payer OTHER, SELFPAY | PROVIDERS: PCP Internal Medicine; Visit Provider Psychiatry & Neurology Neurology | DX: G43.009 Migraine without aura, not intractable, without status migrainosus (principal); R25.1 Tremor, unspecified | CPT/HCPCS: 99202 ==